=== PATIENT | female | born 1965 | race Caucasian/White ===

== ENCOUNTER 2021-01-04 08:56 | Outpatient (REF) | payer OTHER, SELFPAY | END 2021-01-04 08:57 | disposition home or self-care (01) | LOC: HO.LAB 08:56 | PROVIDERS: Visit Provider Internal Medicine | DX: Z20.822 Contact with and (suspected) exposure to COVID-19 (principal) | CPT/HCPCS: 36415; C9803; U0003; U0005 ==

== ENCOUNTER 2021-08-29 20:02 | Emergency (ER) | payer OTHER, SELFPAY ==
--- NOTE | ~2021-08-29 | XR_ITS ---
EXAMINATION: XR CHEST CLINICAL INFORMATION: Shortness of breath COMPARISON: None TECHNIQUE: Frontal view of the chest was obtained. FINDINGS: No significant abnormality is noted involving the heart, lungs, mediastinum, bony thorax or soft tissues. XR/XR chest 1V IMPRESSION: Unremarkable examination.
[2021-08-29 20:59] VITALS: BMI 33.7
[2021-08-29 21:01] VITALS: BP 143/79; PULSE 77; RESP 22; TEMP 36.9; O2SAT 95
[2021-08-29 21:19] VITALS: BP 107/69; PULSE 140; RESP 28; TEMP 36.8; O2SAT 100
[2021-08-29 21:31] LABS: COVID-19 Test Negative (Negative)
--- NOTE | 2021-08-29 21:42 | ECG_ITS ---
Test Reason : DYSPNEA Blood Pressure : / mmHG Vent. Rate : 068 BPM Atrial Rate : 068 BPM P-R Int : 146 ms QRS Dur : 076 ms QT Int : 400 ms P-R-T Axes : 032 005 048 degrees QTc Int : 425 ms Normal sinus rhythm Possible Left atrial enlargement Nonspecific T wave abnormality Abnormal ECG No previous ECGs available Referred By: Kristi Walters Electronically Signed By:MODESTO LAGUNAS
--- NOTE | 2021-08-29 22:12 | ED_ITS ---
HPI - SOB/Dyspnea General Chief Complaint: Dyspnea Stated Complaint: diff breathing Time Seen by Provider: 08/29/21 21:41 Source: patient Mode of arrival: ambulatory History of Present Illness HPI Narrative: 56-year-old female with history of asthma and hypertension presents with worsening shortness of breath over the past couple of days and states she has not had an inhaler for over 1 year. She states she has not been going to her primary care provider because she was taking care of her sick who recently passed secondary to cancer. She denies any associated fever chills but is having headache and body aches and has received both COVID- 19 back and denies any recent exposure to her knowledge. In addition, patient denies any recent travel or calf swelling. She denies any chest pain/palpitations and otherwise denies any GI or symptoms. Related Data Previous Rx's Medication Instructions Recorded prednisone 20 mg tablet 40 mg PO DAILY 4 Days #8 tab 08/29/21 Allergies Allergy/AdvReac Type Severity Reaction Status Date / Time No Known Allergies Allergy Unverified 08/13/20 19:34 [No Known Allergies*] Review of Systems Review of Systems: Pertinent positives and negatives as stated in HPI 10 point review of systems is otherwise negative. PMFSH Past Medical History Source: nursing notes reviewed Social History Social History Advance Directives: No Advance Directives Information Provided: No Physical Exam 2 Vital Signs: Vital Signs: Last Vital Signs Temp 98.3 F 08/29/21 21:19 Pulse 140 H 08/29/21 21:19 Resp 28 H 08/29/21 21:19 BP 107/69 08/29/21 21:19 Pulse Ox 100 08/29/21 21:19 Body Mass Index 33.7 VITAL SIGNS: Reviewed. GENERAL: Well developed, well nourished, in no acute distress. HEAD: Normocephalic/atraumatic, EYES: PERRLA, EOMI OROPHARYNX: no oral lesions noted, posterior pharynx clear LUNGS: Good inspiratory effort tachypnea, rhonchi throughout but no rales. SpO2<100> CARDIOVASCULAR: Regular rate and rhythm without noted murmurs, no JVD or lower extremity edema. ABDOMEN: Soft, non-tender, non-distended with bowel sounds. MUSCULOSKELETAL: No tenderness, deformities, or effusions noted on gross inspection. EXTREMITIES: No cyanosis, clubbing or edema. SKIN: Inspection of the skin reveals no rashes NEUROLOGIC: Alert and oriented x 4. Strength and sensation to light touch were grossly intact x 4. Course Course Course Narrative: 56-year-old female with history and clinical presentation suggestive underlying viral etiology, but patient does have history of asthma will provide albuterol/steroids and on review of all investigations shins and repeat swabbing with respiratory all shows the patient is positive for RSV. Patient was informed of all results and plan. She is otherwise hemodynamically stable will be discharged home in stable condition with instructions to follow- up with her primary care provider. MDM - SOB/Dyspnea Lab Data Result diagrams: 08/29/21 22:15 08/29/21 22:15 Labs: Lab Results 08/29/21 08/29/21 08/29/21 Range/Units 21:05 22:15 22:15 WBC 7.9 (4.8-10.8) X10*3/uL RBC 4.57 (4.20-5.50) X10*6/uL Hgb 13.8 (12.0-16.0) g/dl Hct 42.5 (37-47) % MCV 93.0 (80-98) fL MCH 30.2 (27.0-33.0) pg MCHC 32.5 (31.0-35.0) g/dl RDW 13.9 (11.0-16.0) % Plt Count 244 (160-400) X10*3/uL MPV 11.2 (9.4-12.3) fL Immature Gran % (Auto) 0.4 (0.0-0.4) % Neut % (Auto) 71.1 (45-73) % Lymph % (Auto) 16.4 L (20-40) % Lenoir % (Auto) 11.5 H (2-11) % Eos % (Auto) 0.1 (0-4) % Baso % (Auto) 0.5 (0-2) % Lymph # (Auto) 1.3 (1.2-4.9) X10*3/uL Lenoir # (Auto) 0.9 (0.1-1.2) X10*3/uL Eos # (Auto) 0.0 (0.0-0.4) X10*3/uL Baso # (Auto) 0.0 (0.0-0.2) X10*3/uL Abs Immat Gran (auto) 0.03 (0.00-0.03) X10*3/uL Absolute Neuts (auto) 5.7 (2.0-8.3) X10*3/uL Absolute Nucleated RBC 0.000 (0.0-0.012) X10*3/uL Nucleated RBC % (auto) 0.0 (0.0-0.2) /100WBC VBG pH (7.32-7.43) VBG pCO2 mmHg VBG pO2 mmHg VBG HCO3 (22-26) mmol/L VBG O2 Saturation % VBG Base Excess mmol/L Sodium 142 (135-145) mmol/L Potassium 4.4 (3.3-5.1) mmol/L Chloride 104 (96-108) mmol/L Carbon Dioxide 29 (22-29) mmol/L Anion Gap 13 (12-20) BUN 13 (9-16) mg/dL Creatinine 0.85 (0.5-1.4) mg/dL Estim Creat Clear Calc 78.0 Estimated GFR > 60 Random Glucose 95 (60-115) mg/dL Calcium 9.3 (8.4-10.2) mg/dL Total Bilirubin 0.4 (0.0-1.0) mg/dL AST 24 (5-31) U/L ALT 57 H (0-31) U/L Alkaline Phosphatase 129 H (39-117) U/L Troponin I High Sens (<3.5-17.0) ng/L B-Natriuretic Peptide (<100) pg/mL Total Protein 6.7 (6.5-8.0) g/dL Albumin 4.2 (3.5-5.0) g/dL Urine Color Urine Appearance Urine pH (5.0-8.0) Ur Specific Suches (1.005-1.025) Urine Protein (NEG-TRACE) MG/DL Urine Glucose (UA) (NEG) MG/DL Urine Ketones (NEG) MG/DL Urine Blood (NEG) Urine Nitrite (NEG) Ur Leukocyte Esterase (NEG) Coronavirus (PCR) (Negative) COVID-19 (MAGDY) Negative (Negative) COVID-19 Clin Com See Note Influenza Type A (PCR) (Negative) Influenza Type B (PCR) (Negative) RSV RNA Qual (PCR) (Negative) 08/29/21 08/29/21 08/29/21 Range/Units 22:15 22:15 22:15 WBC (4.8-10.8) X10*3/uL RBC (4.20-5.50) X10*6/uL Hgb (12.0-16.0) g/dl Hct (37-47) % MCV (80-98) fL MCH (27.0-33.0) pg MCHC (31.0-35.0) g/dl RDW (11.0-16.0) % Plt Count (160-400) X10*3/uL MPV (9.4-12.3) fL Immature Gran % (Auto) (0.0-0.4) % Neut % (Auto) (45-73) % Lymph % (Auto) (20-40) % Lenoir % (Auto) (2-11) % Eos % (Auto) (0-4) % Baso % (Auto) (0-2) % Lymph # (Auto) (1.2-4.9) X10*3/uL Lenoir # (Auto) (0.1-1.2) X10*3/uL Eos # (Auto) (0.0-0.4) X10*3/uL Baso # (Auto) (0.0-0.2) X10*3/uL Abs Immat Gran (auto) (0.00-0.03) X10*3/uL Absolute Neuts (auto) (2.0-8.3) X10*3/uL Absolute Nucleated RBC (0.0-0.012) X10*3/uL Nucleated RBC % (auto) (0.0-0.2) /100WBC VBG pH (7.32-7.43) VBG pCO2 mmHg VBG pO2 mmHg VBG HCO3 (22-26) mmol/L VBG O2 Saturation % VBG Base Excess mmol/L Sodium (135-145) mmol/L Potassium (3.3-5.1) mmol/L Chloride (96-108) mmol/L Carbon Dioxide (22-29) mmol/L Anion Gap (12-20) BUN (9-16) mg/dL Creatinine (0.5-1.4) mg/dL Estim Creat Clear Calc Estimated GFR Random Glucose (60-115) mg/dL Calcium (8.4-10.2) mg/dL Total Bilirubin (0.0-1.0) mg/dL AST (5-31) U/L ALT (0-31) U/L Alkaline Phosphatase (39-117) U/L Troponin I High Sens 4.9 (<3.5-17.0) ng/L B-Natriuretic Peptide 24 (<100) pg/mL Total Protein (6.5-8.0) g/dL Albumin (3.5-5.0) g/dL Urine Color Urine Appearance Urine pH (5.0-8.0) Ur Specific Suches (1.005-1.025) Urine Protein (NEG-TRACE) MG/DL Urine Glucose (UA) (NEG) MG/DL Urine Ketones (NEG) MG/DL Urine Blood (NEG) Urine Nitrite (NEG) Ur Leukocyte Esterase (NEG) Coronavirus (PCR) NEGATIVE (Negative) COVID-19 (MAGDY) (Negative) COVID-19 Clin Com Influenza Type A (PCR) NEGATIVE (Negative) Influenza Type B (PCR) NEGATIVE (Negative) RSV RNA Qual (PCR) POSITIVE A (Negative) 08/29/21 08/29/21 Range/Units 22:19 22:41 WBC (4.8-10.8) X10*3/uL RBC (4.20-5.50) X10*6/uL Hgb (12.0-16.0) g/dl Hct (37-47) % MCV (80-98) fL MCH (27.0-33.0) pg MCHC (31.0-35.0) g/dl RDW (11.0-16.0) % Plt Count (160-400) X10*3/uL MPV (9.4-12.3) fL Immature Gran % (Auto) (0.0-0.4) % Neut % (Auto) (45-73) % Lymph % (Auto) (20-40) % Lenoir % (Auto) (2-11) % Eos % (Auto) (0-4) % Baso % (Auto) (0-2) % Lymph # (Auto) (1.2-4.9) X10*3/uL Lenoir # (Auto) (0.1-1.2) X10*3/uL Eos # (Auto) (0.0-0.4) X10*3/uL Baso # (Auto) (0.0-0.2) X10*3/uL Abs Immat Gran (auto) (0.00-0.03) X10*3/uL Absolute Neuts (auto) (2.0-8.3) X10*3/uL Absolute Nucleated RBC (0.0-0.012) X10*3/uL Nucleated RBC % (auto) (0.0-0.2) /100WBC VBG pH 7.40 (7.32-7.43) VBG pCO2 50 mmHg VBG pO2 28 mmHg VBG HCO3 31 H (22-26) mmol/L VBG O2 Saturation 35.0 % VBG Base Excess 5.9 mmol/L Sodium (135-145) mmol/L Potassium (3.3-5.1) mmol/L Chloride (96-108) mmol/L Carbon Dioxide (22-29) mmol/L Anion Gap (12-20) BUN (9-16) mg/dL Creatinine (0.5-1.4) mg/dL Estim Creat Clear Calc Estimated GFR Random Glucose (60-115) mg/dL Calcium (8.4-10.2) mg/dL Total Bilirubin (0.0-1.0) mg/dL AST (5-31) U/L ALT (0-31) U/L Alkaline Phosphatase (39-117) U/L Troponin I High Sens (<3.5-17.0) ng/L B-Natriuretic Peptide (<100) pg/mL Total Protein (6.5-8.0) g/dL Albumin (3.5-5.0) g/dL Urine Color YELLOW Urine Appearance HAZY Urine pH 6.0 (5.0-8.0) Ur Specific Suches 1.020 (1.005-1.025) Urine Protein NEG (NEG-TRACE) MG/DL Urine Glucose (UA) NEG (NEG) MG/DL Urine Ketones NEG (NEG) MG/DL Urine Blood NEG (NEG) Urine Nitrite NEG (NEG) Ur Leukocyte Esterase NEG (NEG) Coronavirus (PCR) (Negative) COVID-19 (MAGDY) (Negative) COVID-19 Clin Com Influenza Type A (PCR) (Negative) Influenza Type B (PCR) (Negative) RSV RNA Qual (PCR) (Negative) ECG Data Attestation: I personally reviewed and interpreted this ECG as follows: Prior ECG tracings: not available for review Interpretation: Normal sinus rhythm, HR-68, no STEMI, KY/QRS/QTC are within normal limits. Discharge Plan Discharge Clinical Impression: RSV infection, Viral syndrome, Asthma Patient Disposition: Home, Self-Care Instructions: Respiratory Syncytial Virus (ED), Asthma (ED), Viral Syndrome (ED) Additional Instructions: 1. Tylenol 1000 mg, por v?a oral, cada 6 horas para el dolor de ovi y los eliud corporales. No exceda los 4000 mg en 24 horas. 2. Ibuprofeno 400 mg, por v?a oral con leche o alimentos, cada 6 horas seg?n sea necesario para controlar el dolor. 3. Contin?e bebiendo muchos l?quidos, especialmente agua. 4. Joselyn un seguimiento con schmidt proveedor de atenci?n primaria el lunes por la ma?kenneth para douglas reevaluaci?n adicional para el manejo ambulatorio. Regrese a la moises de emergencias si brett s?ntomas empeoran de manera aguda. Prescriptions: New prednisone 20 mg tablet 40 mg PO DAILY 4 Days Qty: 8 RF: 0 Referrals: Physician,Unknown [Primary Care Provider] - 2 days Print Language: Brazilian
[2021-08-29 22:21] LABS: MANUAL DIFF FLAG NO
[2021-08-29 22:24] LABS: Basophils Percent Auto 0.5 % (0-2); Eosinophils Percent Auto 0.1 % (0-4); Hematocrit 42.5 % (37-47); Hemoglobin 13.8 g/dl (12.0-16.0); Imm Gran Abs Auto 0.03 X10*3/uL (0.00-0.03); Imm Gran Pct Auto 0.4 % (0.0-0.4); Lymphocytes Absolute Auto 1.3 X10*3/uL (1.2-4.9); Lymphocytes Percent Auto 16.4 % (20-40); Mean Corpuscular HGB Conc 32.5 g/dl (31.0-35.0); Mean Corpuscular Hemoglobin 30.2 pg (27.0-33.0); Mean Platelet Volume 11.2 fL (9.4-12.3); Monocytes Absolute Auto 0.9 X10*3/uL (0.1-1.2); Monocytes Percent Auto 11.5 % (2-11); Neutrophils Absolute Auto 5.7 X10*3/uL (2.0-8.3); Neutrophils Percent Auto 71.1 % (45-73); Platelet Count 244 X10*3/uL (160-400); Red Blood Count 4.57 X10*6/uL (4.20-5.50); Red Cell Distribution Width 13.9 % (11.0-16.0); White Blood Count 7.9 X10*3/uL (4.8-10.8)
[2021-08-29 22:25] LABS: VBG Base Excess 5.9 mmol/L; VBG HCO3 31 mmol/L (22-26); VBG pCO2 50 mmHg; VBG pO2 28 mmHg
[2021-08-29 22:39] LABS: Venous Blood Gas Refer to POC result
[2021-08-29 22:41] LABS: Alanine Aminotransferase 57 U/L (0-31); Albumin Level 4.2 g/dL (3.5-5.0); Alkaline Phosphatase 129 U/L (39-117); Anion Gap 13 (12-20); Aspartate Amino Transferase 24 U/L (5-31); Bilirubin Total 0.4 mg/dL (0.0-1.0); Blood Urea Nitrogen 13 mg/dL (9-16); Calcium 9.3 mg/dL (8.4-10.2); Carbon Dioxide 29 mmol/L (22-29); Chloride 104 mmol/L (96-108); Estimated Glomerular Filt Rate > 60; Glucose Random 95 mg/dL (60-115); Potassium 4.4 mmol/L (3.3-5.1); Sodium 142 mmol/L (135-145); Total Protein 6.7 g/dL (6.5-8.0)
[2021-08-29 22:45] LABS: Troponin-I High Sensitivity 4.9 ng/L (<3.5-17.0)
[2021-08-29 22:49] LABS: Appearance Urine HAZY; Color Urine YELLOW; Glucose Urine UA NEG (NEG); Leukocyte Esterase Urine NEG (NEG); Nitrite Urine NEG (NEG); Urine Blood NEG (NEG); Urine Ketones NEG (NEG); Urine Protein NEG (NEG-TRACE)
[2021-08-29 23:13] LABS: Influenza A PCR NEGATIVE (Negative); Influenza B PCR NEGATIVE (Negative); Resp Syncy Virus RNA Qual PCR POSITIVE (Negative); SARS COV2 PCR INHOUSE NEGATIVE (Negative)
[2021-08-29 23:23] LABS: B Type Natriuretic Peptide 24 pg/mL (<100)
[2021-08-29] MEDS: Albuterol Sulfate 90 MCG 8 GM INHALER 4 PUFF INHALE (23:40)
[2021-08-29] MEDS: predniSONE 20 MG TABLET 40 MG PO (23:40)
[2021-08-30] MEDS: Ibuprofen 400 MG TABLET PO
[2021-08-30] MEDS: Acetaminophen 325 MG TABLET 975 MG PO
== END 2021-08-30 00:07 | disposition home or self-care (01) ==
PROVIDERS: Emergency Provider Student in an Organized Health Care Education/Training Program
DX: J06.9 Acute upper respiratory infection, unspecified (principal); B97.4 Respiratory syncytial virus as the cause of diseases classified elsewhere; J45.909 Unspecified asthma, uncomplicated; R06.00 Dyspnea, unspecified; I10 Essential (primary) hypertension; Z20.822 Contact with and (suspected) exposure to COVID-19; Z79.899 Other long term (current) drug therapy
CPT/HCPCS: 0241U; 36415; 71045; 80053; 81003; 82803; 83880; 84484; 85025; 87635; 93005; 99284

== ENCOUNTER 2022-03-08 04:52 | Emergency (ER) | payer OTHER, SELFPAY ==
--- NOTE | ~2022-03-08 | XR_ITS ---
EXAMINATION: XR ANKLE, RIGHT CLINICAL INFORMATION: Fall. Pain. COMPARISON: None TECHNIQUE: AP, lateral, and mortise views of the right ankle. FINDINGS: No acute fracture or dislocation. Ankle mortise is congruent. Talar dome intact. Small plantar calcaneal enthesophyte. No ankle joint effusion. Soft tissue swelling lateral to the ankle. XR/XR ankle RT 2V IMPRESSION: No acute fracture or dislocation.
[2022-03-08 05:14] VITALS: BP 126/68; PULSE 78; RESP 18; TEMP 36.3; O2SAT 97; BMI 34.0
--- NOTE | 2022-03-08 05:38 | ED_ITS ---
HPI - Extremity Injury (Lower) General Chief Complaint: Extremity Injury, Lower Stated Complaint: missed a step & fell down stairs; R leg swollen Time Seen by Provider: 03/08/22 05:38 Source: patient Mode of arrival: ambulatory Limitations: no limitations History of Present Illness HPI Narrative: Patient fell down one step and she rolled her ankle complaint: ankle injury Onset (ago): hour(s) Place: home Severity: mild Exacerbating factors: weight bearing and movement Context: fall Other symptoms: none Related Data Previous Rx's Medication Instructions Recorded prednisone 20 mg tablet 40 mg PO DAILY 4 Days #8 tab 08/29/21 naproxen 500 mg tablet (Naprosyn) 500 mg PO BID #20 tab 03/08/22 Allergies Allergy/AdvReac Type Severity Reaction Status Date / Time No Known Allergies Allergy Unverified 08/13/20 19:34 [No Known Allergies*] Review of Systems Constitutional: Constitutional: Reports no additional constitutional complaints Eyes: Eyes: Reports no additional eye complaints ENT: Denies dizziness Cardiovascular: Cardiovascular: Reports no additional cardiovascular complaints Respiratory: Respiratory: Reports as per HPI Gastrointestinal: Gastrointestinal: Reports no additional gastrointestinal complaints Genitourinary: Genitourinary: Reports no additional female genitourinary complaints Musculoskeletal: Musculoskeletal: Reports no additional musculoskeletal complaints Integumentary/Breasts: Skin/Breast: Denies rash Neurologic: Reports system reviewed and no additional complaints, except as documented, Denies dizziness and Denies Sensory deficit (Neuro) Psychiatric: Psychiatric: Denies anxiety [facility] Social History Social History Patient Tobacco Use Status: Never used Tobacco Use of substances other than those prescribed or required for medical reasons: No Advance Directives: No Physical Exam Vital Signs: Vital Signs: Last Vital Signs Temp 97.4 F 03/08/22 05:14 Pulse 78 03/08/22 05:14 Resp 18 03/08/22 05:14 BP 126/68 03/08/22 05:14 Pulse Ox 97 03/08/22 05:14 BMI result Body Mass Index 34.0 Const: General: healthy appearing Nutritional Appearance: average body habitus Orientation/consciousness: oriented to person and patient oriented x3 Limitations: no limitations HEENT: Head: Yes normal to inspection Ears: external ears normal General nose exam: Normal external nose present Mouth: Normal oral and palatal mucosa present and oropharynx normal Throat: Yes posterior oropharynx normal Eyes: General: appearance normal, both eyes and all related structures Neck: Other: supple Neck: Yes normal visual inspection Chest: Chest palpation & inspection: normal inspection of the chest Resp: Auscultation: clear to auscultation bilaterally Cardio: Jugular venous distension: no JVD Rate: regular rate Rhythm: regular rhythm Heart sounds: S1 normal heart sound present and S2 normal heart sound present GI: Inspection: Yes normal to inspection Palpation (GI): Soft to palpation, nontender and No hepatosplenomegaly present Auscultation: normal bowel sounds : General: Yes no CVA tenderness Back/Spine/Pelvis: Back: no CVA tenderness Skin: General skin exam: no rashes or lesions noted Neuro: General: oriented to person and patient oriented x3 Cranial nerves: Yes CN's II-XII intact bilaterally Motor exam (neuro): 5/5 motor strength present throughout Sensory Exam: No Sensory deficit (Neuro) Extrem: Other: right ankle with lateral malleoulous swelling and pain Psych: Appearance: grossly normal MDM - Extremity Injury (Lower) Imaging Data ankle: Radiologist's impression: FINDINGS: No acute fracture or dislocation. Ankle mortise is congruent. Talar dome intact. Small plantar calcaneal enthesophyte. No ankle joint effusion. Soft tissue swelling lateral to the ankle.? XR/XR ankle RT 2V IMPRESSION: No acute fracture or dislocation. Discharge Plan Discharge Clinical Impression: Ankle sprain and strain Patient Disposition: Home, Self-Care Instructions: Ankle Sprain (ED), Crutch Instructions (ED) Prescriptions: New naproxen [Naprosyn] 500 mg tablet 500 mg PO BID Qty: 20 0RF No Action prednisone 20 mg tablet 40 mg PO DAILY 4 Days Qty: 8 0RF Referrals: Melinda Flores NP [Primary Care Provider] - 1 week
[2022-03-08] MEDS: Ketorolac Tromethamine 60 MG/2 ML VIAL IM (06:02)
--- NOTE | 2022-03-08 06:10 | PC.NURSE ---
pt a&o, no sob or chest pain . medicated for pain. positive pedal pulse and cms.
--- NOTE | 2022-03-08 06:56 | PC.NURSE ---
Reviewed discharge instruction with patient and verbalized understanding. Crutches educations completed by PcT
== END 2022-03-08 06:57 | disposition home or self-care (01) ==
PROVIDERS: Emergency Provider Emergency Medicine; PCP Nurse Practitioner
DX: S93.401A Sprain of unspecified ligament of right ankle, initial encounter (principal); S96.911A Strain of unspecified muscle and tendon at ankle and foot level, right foot, initial encounter; W10.8XXA Fall (on) (from) other stairs and steps, initial encounter; Y93.9 Activity, unspecified; Y92.9 Unspecified place or not applicable; Y99.9 Unspecified external cause status
CPT/HCPCS: 73600; 96372; 99284; J1885

== ENCOUNTER 2022-10-25 08:03 | Emergency (ER) | payer OTHER, SELFPAY ==
--- OUTSIDE RECORDS SUMMARY | 2022-10-25 08:21 | XMS_ITS | Continuity of Care Document ---
:1965 Author Organization [facility] Address [address] [place] [id number]- Care Team Providers Name Role Phone Odalis KYLE, Silvia Primary Care Physician Encounter [facility] [place] Date(s): 08/23/21 - 12/08/[address] [address] Attending Physician: Ruth Jules Admitting Physician: Ruth Jules Referring Physician: Ruth Jules Allergies, Adverse Reactions, Alerts Substance Reaction Severity Status NKA Active Medications amLODIPine 10 mg oral tablet TAKE 1 TABLET BY MOUTH EVERY DAY Start Date: 11/06/19 Status: Orderedbaclofen 10 mg oral tablet 10 mg, 1, tablet, By Mouth, 3 times a day, # 90 tablet, Refills 0, Maintenance, 06/17/20 15:56:00 EDT Start Date: 06/17/20 Status: Orderedcelecoxib 100 mg oral capsule 1 capsule = 100 mg, By Mouth, 2 times a day, # 60 capsule, 0 Refills, Maintenance, 06/17/20 15:56:00EDT, Capsule Start Date: 06/17/20 Status: OrderedCompression Stockings See Instructions, # 2 each, Refills 2, Tot. Refills 2, Maintenance, surgical, calf length 20-30 mm Hg dx: venous insufficiency, 11/06/19 14:35:39 EST, Compound Start Date: 11/06/19 Status: Orderedhydrochlorothiazide-lisinopril 25 mg-20 mg oral tablet TAKE 1 TABLET BY MOUTH EVERY DAY Start Date: 11/06/19 Status: Orderedomeprazole 20 mg oral enteric coated capsule TAKE ONE CAPSULE BY MOUTH EVERY MORNING BEFORE BREAKFAST Start Date: 11/06/19 Status: Ordered Social History Social History Type Response Tobacco Use: sometime smoker. Sex
--- OUTSIDE RECORDS SUMMARY | 2022-10-25 08:21 | XMS_ITS | Continuity of Care Document ---
:1965 Author Organization [facility] Address [address] [place] [address]- Care Team Providers Name Role Phone Silvia Jacobo Primary Care Physician Encounter [facility] [place] Date(s): 11/06/19 - 11/13/19 [facility] [address] [place] [address]- [facility] Attending Physician: Tom RODRIGUES, Kizzy Grey Admitting Physician: Tom RODRIGUES, Kizzy Grey Referring Physician: Silvia Jacobo Allergies, Adverse Reactions, Alerts Substance Reaction Severity Status NKA Active Medications amLODIPine 10 mg oral tablet TAKE 1 TABLET BY MOUTH EVERY DAY Start Date: 11/06/19 Status: OrderedCompression Stockings See Instructions, # 2 [...] BEFORE BREAKFAST Start Date: 11/06/19 Status: Ordered Vital Signs Most recent to oldest [Reference Range]: 1 Height 158 cm (11/06/19 2:32 PM) Weight 91 kg (11/06/19 2:32 PM) Body Mass Index [18.5-24.99] 36.45 *>HHI* (11/06/19 2:32 PM) Blood Pressure [90-138/55-84 mm Hg] 112/72 mm Hg (11/06/19 2:32 PM) Blood pressure sites Arm, left (11/06/19 2:32 PM) Social History Social History Type Response Tobacco Use: sometime smoker. Sex
--- OUTSIDE RECORDS SUMMARY | 2022-10-25 08:21 | XMS_ITS | Continuity of Care Document ---
:1965 Author Organization [facility] Address [address] [place] [address]- Care Team Providers Name Role Phone Odalis KYLE, Silvia Primary Care Physician [id number] Date(s): 06/17/20 - 06/24/20 [facility] [address] [place] [address]- [facility] Attending Physician: Tom RODRIGUES, Kizzy Grey Admitting Physician: Kizzy Santos MD Referring Physician: Silvia Jacobo NP Allergies, Adverse Reactions, Alerts Substance Reaction Severity [...] oldest [Reference Range]: 1 Height 158 cm (06/17/20 3:46 PM) Weight 91.2 kg (06/17/20 3:46 PM) Pulse Rate [55-90 bpm] 62 bpm (06/17/20 3:46 PM) Body Mass Index [18.5-24.99] 36.53 *>HHI* (06/17/20 3:46 PM) Blood Pressure [90-138/55-84 mm Hg] 122/80 mm Hg (06/17/20 3:46 PM) Blood pressure sites Arm, right (06/17/20 3:46 PM) Weight Obtained Via Patient/family stated (06/17/20 3:46 PM) Social History Social History Type Response Tobacco Use: sometime smoker. Sex
--- OUTSIDE RECORDS SUMMARY | 2022-10-25 08:21 | XMS_ITS | Continuity of Care Document ---
:1965 Author Organization [facility] Address [address] [place] [address]- Care Team Providers Name Role Phone Silvia Jacobo Primary Care Physician Encounter [facility] [place] Date(s): 11/06/19 - 02/20/20 [facility] [address] [place] [address]- [facility] Attending Physician: Kizzy Santos MD Admitting Physician: Tom RODRIGUES, Kizzy Grey Referring Physician: Kizzy Santos MD Allergies, Adverse Reactions, Alerts Substance Reaction Severity [...]
--- OUTSIDE RECORDS SUMMARY | 2022-10-25 08:21 | XMS_ITS | Continuity of Care Document ---
:1965 Author Organization [facility] Address [address] [place] [address]- Care Team Providers Name Role Phone Silvia Jacobo Primary Care Physician Encounter [facility] [place] Date(s): 02/10/20 - 02/20/20 [facility] [address] [place] [address]- [facility] Attending Physician: Palomo Cain Admitting Physician: Palomo Cain Referring Physician: AdmtrPalomo Allergies, Adverse Reactions, Alerts Substance Reaction Severity [...]
--- OUTSIDE RECORDS SUMMARY | 2022-10-25 08:21 | XMS_ITS | Continuity of Care Document ---
:1965 Author Organization [facility] Address [address] [place] [address]- Care Team Providers Name Role Phone Odalis KYLE, Silvia Primary Care Physician Unavailable Encounter [facility] [place] Date(s): 06/17/20 - 07/17/20 [facility] [address] [place] [address]- [facility] Attending Physician: Palomo Cain Admitting Physician: Palomo Cain Referring Physician: Palomo Cain Allergies, Adverse Reactions, Alerts Substance Reaction Severity [...]
--- OUTSIDE RECORDS SUMMARY | 2022-10-25 08:21 | XMS_ITS | Continuity of Care Document ---
:1965 Author Organization [facility] Address [address] [place] [address], [address] [place] [address] Care Team Providers Name Role Phone Odalis KYLE, Silvia Primary Care Physician Encounter [facility] [place] Date(s): 05/02/22 - 06/01/22 [facility] [address], [address] [place] [address] Attending Physician: Palomo Cain Admitting Physician: Palomo Cain Referring Physician: Palomo Cain Allergies, Adverse Reactions, Alerts No Known Allergies Medications amLODIPine 10 mg oral tablet TAKE [...] BEFORE BREAKFAST Start Date: 11/06/19 Status: Ordered Problem List Condition Effective Dates Status Health Status Informant Chronic low back pain(Confirmed) Active Essential hypertension(Confirmed) Active Former smoker(Confirmed) Active GERD (gastroesophageal reflux Active disease)(Confirmed) Cystocele, unspecified(Confirmed) Active Moderate mixed hyperlipidemia not Active requiring statin therapy(Confirmed) Obese class II(Confirmed) Active Class 2 obesity due to excess calories Active without serious comorbidity with body mass index (BMI) of 36.0 to 36.9 in adult(Confirmed) Primary osteoarthritis of both Active hands(Confirmed) Osteopenia(Confirmed) Active Primary osteoarthritis of both Active knees(Confirmed) Right ankle sprain(Confirmed) Active Moderate persistent asthma without Active complication(Confirmed) Social History Social History Type Response Tobacco Use: sometime smoker. Sex
--- NOTE | 2022-10-25 08:26 | ED_ITS ---
HPI - Back Pain/Injury General Stated Complaint: Back Pain No Injury Time Seen by Provider: 10/25/22 08:13 Source: patient Mode of arrival: ambulatory Limitations: language barrier History of Present Illness HPI Narrative: 57-year-old Fijian-speaking female with past medical history of frequent falls and chronic back pain presents to the emergency department today after straining her back on while taking a turkey out of the oven. She states she lifted and twisted to place the turkey on the counter and felt immediate pain in the middle of her lower back with pain radiating to the left and right low back. She has been medicating for pain at home with naproxen, however; she no longer has naproxen at home. She reports she has had this similar pain in the past and has been treated with naproxen with good results. She states she has chronic urinary incontinence after a anterior vaginal surgery but denies any new loss of bowel or bladder or inability to urinate. She denies any new numbness or tingling, numbness in her buttocks or inner thighs, weakness, or change in her gait. She denies any headache, vision changes, chest pain, shortness of breath, diarrhea, constipation, recent illness, fever, or chills. MD elicited complaint: back pain Pertinent past history: prior back pain Onset (ago): day(s) (5) Timing: constant Severity: moderate Pain scale (0-10): 6 Similar Symptoms Previously: Yes Quality: aching Location: lumbar spine Radiation: other (radiates to right and left lower back) Exacerbating factors: movement Relieving factors: sitting upright Context: while lifting and turning/twisting Associated symptoms: denies other symptoms Treatments prior to arrival: NSAIDS Work related injury: No Related Data Previous Rx's Medication Instructions Recorded prednisone 20 mg tablet 40 mg PO DAILY 4 days #8 tabs 08/29/21 naproxen 500 mg tablet (Naprosyn) 500 mg PO BID #20 tabs 03/08/22 acetaminophen 325 mg tablet 650 mg PO Q6H PRN pain #30 tabs 10/25/22 (Tylenol) cyclobenzaprine 5 mg tablet 5 mg PO TID PRN muscle spasm #14 10/25/22 tabs lidocaine 4 % topical patch 1 patch topical BID PRN pain #10 ea 10/25/22 naproxen 500 mg tablet 500 mg PO BID PRN pain #30 tabs 10/25/22 Allergies Allergy/AdvReac Type Severity Reaction Status Date / Time No Known Allergies Allergy Unverified 08/13/20 19:34 [No Known Allergies*] Review of Systems Review of Systems: Yes all other systems are reviewed and are negative Constitutional: Constitutional: Reports no additional constitutional complaints, Denies chills, Denies fever(s), Reports frequent falls and Denies headache(s) Eyes: Eyes: Reports no additional eye complaints and Denies change in vision ENT: Reports system reviewed and no additional complaints, except as documented, Reports Normal hearing present, Denies dizziness and Denies headache(s) Cardiovascular: Cardiovascular: Reports no additional cardiovascular complaints, Denies chest pain and Denies dyspnea Respiratory: Respiratory: Reports no additional respiratory complaints, Denies cough and Denies dyspnea Gastrointestinal: Gastrointestinal: Reports no additional gastrointestinal complaints and Denies change in bowel habits Genitourinary: Genitourinary: Reports no additional female genitourinary complaints, Denies difficulty voiding, Reports urinary incontinence (baseline) and Denies urinary hesitancy Musculoskeletal: Musculoskeletal: Reports no additional musculoskeletal complaints, Reports abnormal gait (baseline per patient), Reports back pain, Denies muscle weakness, Denies numbness and Denies tingling Integumentary/Breasts: Skin/Breast: Reports system reviewed and no additional complaints, except as docu, Denies lesions, Denies rash and Denies sores Neurologic: Reports system reviewed and no additional complaints, except as documented, Reports Normal hearing present, Reports abnormal gait (baseline per patient), Denies dizziness, Reports frequent falls, Denies headache(s), Denies numbness, Denies tingling and Denies paresthesias Psychiatric: Psychiatric: Reports no additional psychiatric complaints PMFSH Past Medical History Attestation statement: The following information was validated with the patient. Source: old records reviewed Social History Social History Patient Tobacco Use Status: Never used Tobacco Advance Directives: No Physical Exam Const: General: cooperative, alert, awake and well groomed Nutritional Appearance: well nourished Orientation/consciousness: patient oriented x3 Limitations: language barrier HEENT: Head: Yes normal to inspection, Yes normocephalic and Yes atraumatic Ears: hearing grossly normal bilaterally and external ears normal General nose exam: Normal external nose present Face and sinus: Yes normal facial exam and Yes face symmetric Eyes: General: appearance normal, both eyes and all related structures Visual Shine: normal visual shine by confrontation Alignment and Position: alignment normal Periorbital: periorbital findings normal Eyelids: Yes eyelids normal Conjunctivae: conjunctivae normal Sclerae: sclerae normal Pupils: Equal, round and reactive pupils present EOM: EOMs intact bilaterally Neck: Neck: Yes normal visual inspection and Yes full ROM Chest: Chest palpation & inspection: normal inspection of the chest Resp: Effort & Inspection: normal respiratory effort and not labored Auscultation: clear to auscultation bilaterally Cardio: Rate: regular rate Rhythm: regular rhythm : General: Yes no CVA tenderness Back/Spine/Pelvis: Back: no CVA tenderness, No erythema, No warmth, No ecchymosis and back tenderness Cervical Spine: cervical ROM normal Thoracic/Lumbar Spine: pain with thoraco-lumbar ROM Skin: General skin exam: no rashes or lesions noted Neuro: General: patient oriented x3 and moves all extremities Cranial nerves: Yes Equal, round and reactive pupils present, Yes Bilaterally intact EOM present, Yes Midline tongue present, Yes Normal hearing present and Yes Ability to bilaterally elevate shoulders present Cognition (Neuro): normal cognition Gait exam (Neuro): Normal gait present Motor exam (neuro): 5/5 motor strength present throughout Extrem: General: Yes normal to inspection, Yes full ROM and Yes capillary refill normal Psych: Appearance: grossly normal and well kempt Mental Status: mental status grossly normal Speech and movement: Normal speech and movement present Affect: normal affect Attitude: cooperative Medications Administered Discontinued Medications Generic Name Dose Route Start Last Admin Trade Name Freq PRN Reason Stop Dose Admin Ketorolac Tromethamine 15 mg 10/25/22 08:51 10/25/22 08:59 Ketorolac Tromethamine 15 Mg/Ml Vial IM 10/25/22 08:52 15 mg ONCE ONE Administration MDM - Back Pain/Injury MDM Narrative Medical decision making narrative: 57-year-old Fijian-speaking female presenting to the emergency department after hurting her back while lifting and twisting while holding something heavy. She has had the same back pain in the past. Back pain is reproducible during physical exam. No step-offs present. No red flag symptoms, no lower extremity weakness, sensation appears to be intact, bilateral lower extremities with equal strength. Plan to discharge patient home with naproxen, Tylenol, cyclobenzaprine, and lidocaine patches for comfort. History, physical exam, and plan discussed with patient with no unanswered questions. Educated to return to the hospital with new urinary incontinence or urinary hesitancy, new fecal incontinence, new numbness or weakness in lower extremities, numbness in your buttocks, perineum, or inner thighs, change in gait or any other emergent sympt oms that are concerning. Recommended to follow-up with your primary care provider for further treatment and management of your chronic back pain. Medical Records Attestation: I reviewed the patient's medical records. Discharge Plan Discharge Clinical Impression: Lumbar muscle pain Patient Disposition: Home, Self-Care Instructions: Naproxen (By mouth), Cyclobenzaprine (By mouth), Lidocaine Patch (On the skin), Musculoskeletal Pain (ED) Additional Instructions: Four prescriptions were provided to you today to manage your back pain. They were prescribed here [facility] on [address] in [place]. Educated to return to the hospital if you have loss of bladder control or inability to urinate, loss of bowels, new numbness or weakness, numbness in your buttocks or inner thighs, change in the way that you walk or any other emergent symptoms it may concern you. Recommended to follow-up the primary care provider for further treatment and management of your chronic back pain. Prescriptions: New cyclobenzaprine 5 mg tablet 5 mg PO TID PRN (Reason: muscle spasm) Qty: 14 0RF naproxen 500 mg tablet 500 mg PO BID PRN (Reason: pain) Qty: 30 0RF acetaminophen [Tylenol] 325 mg tablet 650 mg PO Q6H PRN (Reason: pain) Qty: 30 0RF lidocaine 4 % adhesive patch,medicated 1 patch topical BID PRN (Reason: pain) Qty: 10 0RF No Action prednisone 20 mg tablet 40 mg PO DAILY 4 Days Qty: 8 0RF naproxen [Naprosyn] 500 mg tablet 500 mg PO BID Qty: 20 0RF Referrals: Melinda Flores NP [Primary Care Provider] - Stand Alone Forms: Work/School Release Print Language: Fijian
[2022-10-25] MEDS: Ketorolac Tromethamine 15 MG/ML VIAL IM (08:59)
[2022-10-25 09:24] VITALS: BP 147/65; PULSE 66; RESP 20; TEMP 35.7; O2SAT 98; BMI 35.0
== END 2022-10-25 09:39 | disposition home or self-care (01) ==
PROVIDERS: Emergency Provider Emergency Medicine; PCP Nurse Practitioner
DX: M54.50 Low back pain, unspecified (principal); M54.2 Cervicalgia; Z79.899 Other long term (current) drug therapy
CPT/HCPCS: 96372; 99283; 99284; J1885